=== PATIENT | male | born 1980 | race Caucasian/White ===

== ENCOUNTER 2020-04-03 16:46 | Emergency (ER) | payer BC ==
[~2020-04-03] VITALS: Ht 172.7 cm; Wt 63.5 kg
[~2020-04-03 16:46] MED LIST: AMOXIL500 MG PO; MOTRIN800 MG PO; NORFLEX100 MG PO; SUDAFED60 MG PO
[2020-04-03] MEDS ORDERED: CYCLOBENZAPRINE5 M3 PO (18:26)
[2020-04-03] MEDS ORDERED: MEDROL DOSEPAK4 MG PO (18:26)
== END 2020-04-03 18:34 | disposition home or self-care (01) ==
LOC: ED 16:46
DX: S39.012A Strain of muscle, fascia and tendon of lower back, initial encounter (principal); X58.XXXA Exposure to other specified factors, initial encounter; Y93.89 Activity, other specified; Y92.89 Other specified places as the place of occurrence of the external cause; Y99.8 Other external cause status